=== PATIENT | female | born 1940 | race Caucasian/White ===

== ENCOUNTER → 2016-10-02 | Outpatient (CLI) | payer MEDICARE ==
--- NOTE | 2016-10-02 13:31 | WOMENS IMAGING REPORT ---
EXAM DESCRIPTION: BONE DENSITY HIP/SPINE COMPLETED DATE/TIME: 10/02/2016 10:40 am REASON FOR STUDY: OSTEOPROSIS M81.0 M81.8 OTHER OSTEOPOROSIS WITHOUT CURRENT PATHOLOGICAL FRACTU M8 1.0 AGE-RELATED OSTEOPOROSIS W/O CURRENT PATHOLOGICAL FRAC COMPARISON: August 2014 TECHNIQUE: Dual-Energy X-ray Absorptiometry (DEXA) of the AP Spine and Hip. LIMITATIONS: None. FINDINGS: LUMBAR SPINE: The bone mineral density (BMD) measured from L1-L4 in the AP projection correlates with a T-score of -0.5, which is normal as defined by the World Health Organization. -3.4% decrease as compared to the previous study HIP: The bone mineral density (BMD) measured in the left hip correlates with a T-score of -2.0, which is o steopenia as defined by the World Health Organization. -2.0 decrease as compared to the previous umer dy. IMPRESSION: 1. LUMBAR SPINE: Normal 2. HIP: Osteopenia COMMENT: The World Health Organization defines low BMD as follows: T-score: Normal: Greater than -1.0 Osteopenia: Between -1.0 and -2.5 Osteoporosis: Less than -2.5 without fractures Established osteoporosis: Less than -2.5 with fractures In general, you may wish to consider: Diagnosis Treatment Follow-up DEXA Normal BMD Prevention 2-3 years Osteopenia Prevention/Therapy 1-2 years Osteoporosis Therapy Yearly TECHNICAL DOCUMENTATION: JOB ID: [id number]- All Rights Reserved
== END ==
LOC: WI 09:39
PROVIDERS: ATTEND Student in an Organized Health Care Education/Training Program
DX: M81.8 Other osteoporosis without current pathological fracture (principal)
CPT/HCPCS: 77080

== ENCOUNTER → 2017-04-24 | Outpatient (CLI) | payer MEDICARE ==
--- NOTE | 2017-04-24 16:58 | RADIOLOGY REPORT (SQ) ---
EXAM DESCRIPTION: CHEST PA/LATERAL COMPLETED DATE/TIME: 04/24/2017 4:41 pm REASON FOR STUDY: MIXED SIMPLE AND MUCOPURULENT CHRONIC BRONCHITIS COMPARISON: 12/04/2012. EXAM PARAMETERS: NUMBER OF VIEWS: two views TECHNIQUE: Digital Frontal and Lateral radiographic views of the chest acquired. RADIATION DOSE: NA LIMITATIONS: none FINDINGS: LUNGS AND PLEURA: Mild chronic interstitial changes. No infiltrates, masses or pneumothor ax. No pleural effusion. MEDIASTINUM AND HILAR STRUCTURES: No masses or contour abnormalities. HEART AND VASCULAR STRUCTURES: Heart normal size. No evidence for failure. BONES: No acute findings. HARDWARE: None in the chest. OTHER: No other significant finding. IMPRESSION: NO ACUTE RADIOGRAPHIC FINDING IN THE CHEST. TECHNICAL DOCUMENTATION: JOB ID: [id number] [email or web address]- All Rights Reserved
== END ==
LOC: OD 16:20
PROVIDERS: ATTEND Student in an Organized Health Care Education/Training Program
DX: J41.8 Mixed simple and mucopurulent chronic bronchitis (principal)
CPT/HCPCS: 71046

== ENCOUNTER → 2017-05-01 | Outpatient (CLI) | payer MEDICARE ==
--- NOTE | 2017-05-01 16:49 | RADIOLOGY REPORT (SQ) ---
EXAM DESCRIPTION: CT LUNG CANCER SCREENING COMPLETED DATE/TIME: 05/01/2017 2:51 pm REASON FOR STUDY: PERSONAL HX OF TOBACCO USE Z12.2 ENCNTR SCREEN FOR MALIGNANT NEOPLASM OF RESPIRAT ORY OR R05 COUGH Z87.891 PERSONAL HISTORY OF NICOTINE DEPENDENCE Has the patient had a Chest CT scan within the past year? No Was the patient offered tobacco cessation counseling? No Was the patient engaged in shared decision making for this test? Yes Does the patient have signs or symptoms of Lung Cancer? No Is the patient a smoker? No How many packs per year? 40 How many years since quitting smoking? 10 Patients age: COMPARISON: None. TECHNIQUE: Low Dose CT scan performed of the chest without intravenous contrast for purposes of scre ening for lung cancer. Images reviewed with lung, soft tissue and bone windows. Reconstructed coron al and sagittal MPR images reviewed. All images stored on PACS. All CT scanners at this facility use dose modulation, iterative reconstruction, and/or weight based d osing when appropriate to reduce radiation dose to as low as reasonably achievable (ALARA). [facility]: Dose Right [facility]: CareDose [facility]: Dose Right [facility]: Teradose 4D [facility]: [employer] RADIATION DOSE: CT Rad equipment meets quality standard of care and radiation dose reduction techniq ues were employed. CTDIvol: 2.1 mGy. DLP: 76 mGy-cm. mGy. . 76.2 LIMITATIONS: None FINDINGS: LUNGS AND PLEURA: No masses or nodules. No pleural effusions or calcifications. No pne umothorax. Chronic bilateral subpleural interstitial changes. HILAR AND MEDIASTINAL STRUCTURES: No identified masses. No abnormal nodes. HEART AND VASCULAR STRUCTURES: No aortic aneurysm. No pericardial effusion. No cardiac devices. CORONARY ARTERY CALCIFICATIONS: Atherosclerotic coronary artery calcification. UPPER ABDOMEN, THYROID, BONES, OTHER SOFT TISSUES:Status post cholecystectomy. IMPRESSION: NO SIGNIFICANT FINDING IN THE LUNGS ON NON-CONTRASTED CHEST CT. NO OTHER CLINICALLY SIGNIFICANT/POTENTIALLY CLINICALLY SIGNIFICANT FINDINGS LUNGRADS: LUNGRADS: 1 NEGATIVE. NO NODULES, OR DEFINITELY BENIGN NODULES MODIFIER: NONE RECOMMENDATION: Continue annual screening with LDCT in 12 months. COMMENT: CRITERIA: No lung nodules. Nodules with specific calcifications: Complete, central, popcorn, concentric rings and fat containin g nodules. TECHNICAL DOCUMENTATION: JOB ID: [id number] Quality ID # [id number]: Final reports with documentation of one or more dose reduction techniques (e.g., Au tomated exposure control, adjustment of the mA and/or kV according to patient size, use of iterative reconstruction technique) 2010 [employer]
== END ==
LOC: RAD 14:20
PROVIDERS: ATTEND Student in an Organized Health Care Education/Training Program
DX: Z12.2 Encounter for screening for malignant neoplasm of respiratory organs (principal); Z87.891 Personal history of nicotine dependence; R06.2 Wheezing
CPT/HCPCS: G0297

== ENCOUNTER 2018-02-17 10:05 | Day surgery (SDC) | payer MEDICARE ==
[~2018-02-17 10:05] MED LIST: MIDAZOLAM 2 MG/2 ML INJ ONE
[2018-02-17] MEDS ORDERED: TETRACAINE HCL 0.5% OPH SOLN 4 ML ONE (10:09)
[2018-02-17] MEDS ORDERED: BALANCED SALT IRRIG SOLN COMB2 15 ML BOTTLE ONE (10:09)
[2018-02-17] MEDS ORDERED: POVIDONE-IODINE 5% OPH PREP SOLN 30 ML ONE (10:09)
[2018-02-17] MEDS ORDERED: FENTANYL CITRATE INJ/PF 100 MCG/2 ML AMPUL ONE (11:33)
[2018-02-17] MEDS ORDERED: MIDAZOLAM 2 MG/2 ML INJ ONE (11:57)
[2018-02-17] MEDS: THROMBIN (BOVINE) TOPICAL 5000 UNIT VIAL ONE ×2 (12:04→12:35)
[2018-02-17] MEDS: BUPIVACAINE HCL 0.75% INJ/PF (7.5 MG/1 ML) 10 ML SDV ONE ×2 (12:04→12:35)
[2018-02-17] MEDS: LIDOCAINE 2%/EPINEPHRINE INJ 20 ML VIAL ONE ×2 (12:04→12:35)
[2018-02-17] MEDS: TOBRAMYCIN SULFATE/DEXAMETH OPH OINTMENT 3.5 GM ONE ×3 (12:36→12:43)
--- NOTE | 2018-02-17 19:12 | [facility] OPERATIVE REPORT E ---
[facility] Operative Report NAME: SENDY GONSALEZ AGE: 77Y DATE OF SURGERY: 02/17/2018 ROOM: PREOPERATIVE DIAGNOSIS: Bilateral eyelid dermatochalasis residual field loss. POSTOPERATIVE DIAGNOSIS: Bilateral eyelid dermatochalasis residual field loss. PROCEDURE PERFORMED: Bilateral upper eyelid blepharoplasty. SURGEON: JAYDE WOO M.D. ANESTHESIA: Local with MAC. DETAIL OF PROCEDURE: The patient was brought to the operating room and under monitored anesthesia care, both eyes were sterilely prepped and draped in the usual manner. Septocaine drops were placed in both eyes. Attention was directed to the left upper lid where the upper lid crease was marked using a marking pen and 0.3 mm forceps were used to estimate the excess upper eyelid skin to be excised. This was marked in an elliptical fashion. Identical procedure was performed on the right upper lid. Local anesthesia was administered. This consisted of a total of 3 mL of 2% Xylocaine with epinephrine mixed with 0.75% Marcaine. This was equally administered to both upper lids and diffused with a Q-Tip. Attention was directed to the left upper lid where the elliptical piece of skin was removed. Hemostasis was obtained with bipolar cautery. The orbital septum was opened and prolapsed retino-septal fat was grasped with a hemostat, cut and cauterized. Thrombin was placed on the incision. Identical procedure was performed on the right upper lid. Wound closure was completed with 2 interrupted 6-0 silk sutures taking a deep bite of levator fascia in both upper lids and finished with a running 6-0 Nylon suture in both upper lids. There was full closure and good hemostasis at the end of the surgery. Maxitrol ointment was placed on both upper lid incisions. Patient tolerated the procedure well and was sent to recovery room in good condition. DICTATING PHYSICIAN: JAYDE WOO M.D. [id number] PHY#: [id number] ID: [id number] JOB#: [id number] ACCT: [id number] cc:JAYDE WOO M.D. >
--- NOTE | 2018-02-17 19:26 | [facility] DISCHARGE SUMMARY E ---
[facility] Discharge Summary NAME: SENDY GONSALEZ AGE: 77Y ADMITTED: 02/17/2018 DISCHARGED: 02/17/2018 ADMISSION DIAGNOSIS: Bilateral eyelid dermatochalasis residual field loss. DISCHARGE DIAGNOSIS: Bilateral eyelid dermatochalasis residual field loss. HOSPITAL COURSE: The patient is a 77-year-old lady who underwent uneventful bilateral blepharoplasty on 02/17/18. She will be discharged to home. DISCHARGE INSTRUCTIONS: She is instructed to resume preoperative medications, take Tylenol as needed for discomfort. To use a blepharoplasty ice pack 10 minutes out of every hour while awake. To keep the head of her bed elevated 30 degrees. To use TobraDex ointment twice a day and followup in my office on 02/26/18. DICTATING PHYSICIAN: JAYDE WOO M.D. [id number] PHY#: [id number] ID: [id number] JOB#: [id number] ACCT: [id number] cc:JAYDE WOO M.D. >
== END 2018-02-17 13:40 | disposition home or self-care (01) ==
LOC: SC 10:05
PROVIDERS: ATTEND Ophthalmology
DX: H02.831 Dermatochalasis of right upper eyelid (principal); H02.834 Dermatochalasis of left upper eyelid; H53.453 Other localized visual field defect, bilateral; I10 Essential (primary) hypertension; E78.00 Pure hypercholesterolemia, unspecified; E03.9 Hypothyroidism, unspecified; F17.210 Nicotine dependence, cigarettes, uncomplicated; J45.909 Unspecified asthma, uncomplicated; I49.9 Cardiac arrhythmia, unspecified; G47.33 Obstructive sleep apnea (adult) (pediatric); Z79.899 Other long term (current) drug therapy; Z79.51 Long term (current) use of inhaled steroids; Z85.3 Personal history of malignant neoplasm of breast
CPT/HCPCS: 15823; J2250; J3490 ×7; J3010; 103

== ENCOUNTER 2018-11-21 21:35 | Emergency (ER) | payer MEDICARE ==
[2018-11-21] MEDS ORDERED: MORPHINE SULFATE 10 MG/ML INJ IV ONE (22:26)
[2018-11-21] MEDS ORDERED: ONDANSETRON HCL INJ/PF 4 MG/2 ML SDV IV ONE (22:26)
--- NOTE | 2018-11-21 22:32 | ER Document Report ---
ED Fall - General Chief Complaint: Facial Injury Stated Complaint: FALL/FACIAL TRAUMA Time Seen by Provider: 11/21/18 22:18 Primary Care Provider: DAJUAN NORTON DDS [ACTIVE STAFF] - 11/23/18 Notes: Patient is a 78-year-old female who comes to the emergency department for chief complaint of fall injury. She states she fell in the parking lot, she landed on her right wrist and also struck her face on the pavement, she has abrasions to the forehead, side of the nose, and she did have a nosebleed. She was not knocked out. She reports nausea but she has not vomited. She is not on blood thinner. She has a bruise over her left lower leg as well. She denies any other injuries including back pain, chest pain, abdominal pain, focal numbness or weakness, or incontinence. Daughter is at bedside. Patient was brought by EMS, given 50 mcg of fentanyl. Patient's tetanus is up-to-date. TRAVEL OUTSIDE OF THE [place] IN LAST 30 DAYS: No - Related data Allergies/Adverse Reactions: PRANAV Inhibitors [Pranav Inhibitors] Allergy (Verified 02/17/18 11:08) dexamethasone [From Maxitrol] Allergy (Verified 02/17/18 11:08) neomycin [From Maxitrol] Allergy (Verified 02/17/18 11:08) polymyxin B [From Maxitrol] Allergy (Verified 02/17/18 11:08) TAPE Allergy (Uncoded 02/17/18 11:08) BLISTER Past Medical History - General Information source: Patient - Social History Smoking Status: Never Smoker Frequency of alcohol use: None Drug Abuse: None Lives with: Family Family History: Reviewed & Not Pertinent - Past Medical History Cardiac Medical History: Reports: Hx Hypertension - CONTROLLED Denies: Hx Heart Attack Pulmonary Medical History: Denies: Hx Asthma Neurological Medical History: Denies: Hx Cerebrovascular Accident, Hx Seizures GI Medical History: Denies: Hx Hepatitis, Hx Hiatal Hernia, Hx Ulcer Infectious Medical History: Denies: Hx Hepatitis Past Surgical History: Reports: Hx Hysterectomy, Hx Mastectomy - LUMPECTOMY, ONCOPLASTIC, NO RESTRICTIONS. Denies: Hx Open Heart Surgery, Hx Pacemaker - Immunizations Hx Diphtheria, Pertussis, Tetanus Vaccination: Yes Review of Systems - Review of Systems Constitutional: No symptoms reported EENT: No symptoms reported Cardiovascular: No symptoms reported Respiratory: No symptoms reported Gastrointestinal: See HPI Genitourinary: No symptoms reported Female Genitourinary: No symptoms reported Musculoskeletal: See HPI Skin: See HPI Hematologic/Lymphatic: No symptoms reported Neurological/Psychological: No symptoms reported Physical Exam - Vital signs Vitals: Temp Pulse Resp BP Pulse Ox 98.4 F 81 18 199/106 H 97 11/21/18 21:55 11/21/18 21:55 11/21/18 21:55 11/21/18 21:55 11/21/18 21:55 - Notes Notes: GENERAL: Alert, interacts well. HEAD: Normocephalic. Abrasion over the left eyebrow and along the upper lateral aspect of the nose, no significant wounds, no trauma noted otherwise. EYES: Pupils equal, round, and reactive to light. Extraocular movements intact. ENT: Oral mucosa moist, tongue midline. Oropharynx unremarkable. Airway patent. Small amount of dried epistaxis. No septal hematoma. No current bleeding, lexy ining nasal exam is unremarkable. TM's intact. NECK: Full range of motion. Supple. Trachea midline. LUNGS: Clear to auscultation bilaterally, no wheezes, rales, or rhonchi. No respiratory distress. HEART: Regular rate and rhythm. No murmur ABDOMEN: Soft, non-tender. Non-distended. Bowel sounds present in all 4 quadrants. GENITOURINARY: Deferred EXTREMITIES: Reports tenderness around the right wrist but no swelling, tenderness, snuffbox tenderness, range of motion deficit, or other abnormalities noted. Tenderness with a contusion over the left proximal anterior tibia. Otherwise all extremities are completely unremarkable with normal distal neurovascular exams. BACK: no cervical, thoracic, lumbar midline tenderness. No saddle anesthesia, normal distal neurovascular exam. Moves all extremities in full range of motion. NEUROLOGICAL: Alert and oriented x3. Normal speech. Cranial nerves II through XII grossly intact. PSYCH: Normal affect, normal mood. SKIN: Warm, dry, normal turgor. No rashes or lesions noted. Course - Re-evaluation Re-evalutation: Patient with facial abrasions but no wounds requiring repair. These were cleaned and dressed with bacitracin. Patient had epistaxis initially but her evaluation is reassuring, she has clear nasal passages now, no septal hematoma. CAT scan imaging showing fractures of the nasal bones and of the anterior aspect of the septum bone. I rechecked her and she has absolutely no septal hematoma. No septal hematoma on CAT scan imaging either. Remaining imaging unremarkable. On reevaluation patient continues to be well-appearing. She did require medications for nausea but then this dissipated. She has not vomited. No neurological deficits. I discussed work-up in detail with patient and family at bedside. Patient will be discharged home, follow-up with oral maxillofacial surgery, she was provided with pain medication and precautions, discussed return precautions in detail. They state understanding and agreement. - Vital Signs Vital signs: Temp Pulse Resp BP Pulse Ox 98.2 F 78 16 176/86 H 96 11/22/18 00:56 11/22/18 00:56 11/22/18 00:56 11/22/18 00:56 11/22/18 00:56 Discharge - Discharge Clinical Impression: Right wrist pain, Left leg pain Fall Qualifiers: Encounter type: initial encounter Qualified Code(s): W19.XXXA - Unspecified fall, initial encounter Nasal bone fracture Qualifiers: Encounter type: initial encounter Fracture type: closed Qualified Code(s): S02.2XXA - Fracture of nasal bones, initial encounter for closed fracture Facial abrasion Qualifiers: Encounter type: initial encounter Qualified Code(s): S00.81XA - Abrasion of other part of head, initial encounter Condition: Stable Disposition: HOME, SELF-CARE Additional Instructions: You have fractures of the nasal bones and part of the nasal bony septum. Follow-up with the facial surgeon, call Friday for your appointment. See nasal bone fracture instructions listed below. There is no bleeding on the brain, please follow head injury precautions listed below. Keep facial abrasions clean, clean with soap and water, dressed with topical antibiotic. Take pain medication if needed, take nausea medication if needed, take the stool softener if you do take the pain medication to avoid constipation. Return for any concerning symptoms. Fracture of the Nose You have a fractured nose. The examination shows no evidence that the nose needs to be "set" or operated on. However, the physician must recheck the nose once the swelling has decreased. The final decision about straightening of the bones or surgery can be made once the swelling resolves. This usually takes three to five days. Rest in a reclining chair. Cold pack the nose for the next 24 to 36 hours. Do not blow the nose. This may increase the swelling or cause further bleeding. If you have painful swelling inside the nose or exquisite tenderness when the tip of the nose is touched, you should call the doctor at once or return for re-evaluation. You should also contact the doctor if you develop fever, purulent nasal drainage, increasing pain in the face, or problems with vision. Head Injury Precautions At this point, there is no evidence that your head injury is serious. Observation is necessary, however. Take only clear liquids for the first few hours, unless told otherwise by the doctor. If no pain medication was prescribed, you may take acetaminophen according to the directions on the bottle. Do not take any medication that may alter your level of alertness (unless you've discussed it with the doctor first). Limit activity for the first 24 hours. During the first 24 hours, check to see approximately every two to three hours that the patient is easily arousable, responds normally, and can perform common tasks such as walking without difficulty. Contact your doctor or go to the hospital if any of the following things occur: Persistent vomiting, difficulty in arousing the patient, worsening or continued headache, or failure to improve as expected. Head injuries can cause symptoms that persist for a few days or even a few weeks. Prescriptions: Docusate Sodium [Colace 100 mg Capsule] 100 mg PO ASDIR PRN #30 capsule PRN Reason: Hydrocodone/Acetaminophen [[place] 5-325 mg Tablet] 1 - 2 tab PO ASDIR #15 tablet Ondansetron [Zofran Odt 4 mg Tablet] 1 - 2 tab PO Q4H PRN #15 tab.rapdis PRN Reason: For Nausea/Vomiting Referrals: DAJUAN NORTON DDS [ACTIVE STAFF] - 11/23/18
--- NOTE | 2018-11-21 23:18 | RADIOLOGY REPORT (SQ) ---
EXAM DESCRIPTION: CT HEAD WITHOUT IV CONTRAST COMPLETED DATE/TME: 11/21/2018 22:27 CLINICAL HISTORY: fall, injury COMPARISON: None available TECHNIQUE: Axial CT of the head obtained from the skull apex to the skull base without contrast. FINDINGS: No acute intracranial hemorrhage identified. No mass, mass effect, shift of the midline, abnormal extra-axial fluid collection or CT evidence of acute ischemic change identified. The ventricular system and sulcal spaces are mildly enlarged compatible with mild cerebral atrophy. Scattered areas of hypodensity throughout the supratentorial white matter are nonspecific and may be related to chronic small vessel ischemic change. The visualized paranasal sinuses and the mastoids are clear. Bilateral minimally displaced nasal bone fractures. Contusion in the left frontal scalp subcutaneous soft tissues. No skull fracture identified. Visualized orbits and globes are unremarkable. Atherosclerotic calcification of the intracranial internal carotid arteries. DLP: 855.01 mGy-cm IMPRESSION: 1. No acute intracranial abnormality by CT criteria. 2. Bilateral minimally displaced nasal bone fractures. Please see dedicated facial bone CT for further details. This exam was performed according to our departmental dose-optimization program, which includes automated exposure control, adjustment of the mA and/or kV according to patient size and/or use of iterative reconstruction technique.
--- NOTE | 2018-11-21 23:27 | RADIOLOGY REPORT (SQ) ---
EXAM DESCRIPTION: [facility]: CT MAXILLOFACIAL WITHOUT IV CONTRAST CLINICAL HISTORY: 78 years Female; fall, injury TECHNIQUE: High resolution axial CT of the face without contrast, with sagittal and coronal reformatted images. All CT scans at this facility use dose modulation, iterative reconstruction, and/or weight based dosing when appropriate to reduce radiation dose to as low as reasonably achievable. COMPARISON: None. FINDINGS: There are multiple acute minimally displaced fractures of the nasal bones bilaterally. A minimally displaced fracture also extends through the anterior superior portion of the bony nasal septum. There is minimal septal hemorrhage. Small amount of hemorrhage and air is noted anterior to the nasal bones. No hyperdense foreign bodies. Mandible is intact. No additional facial fractures. Both globes are aphakic. There is mild left supraorbital/frontal scalp hemorrhage/edema. No significant focal hematoma. Paranasal sinuses and mastoids are clear. No retro-orbital hematoma. IMPRESSION: 1. Acute minimally displaced fractures of the nasal bones and anterior superior portion of the bony nasal septum. There is associated hemorrhage, but no significant septal hematoma. 2. No additional facial fractures.
--- NOTE | 2018-11-21 23:37 | RADIOLOGY REPORT (SQ) ---
EXAM DESCRIPTION: XR TIBIA FIBULA 2 VIEWS COMPLETED DATE/TME: 11/21/2018 22:27 CLINICAL HISTORY: 78 years, Female, fall, injury COMPARISON: None. NUMBER OF VIEWS: 4 TECHNIQUE: 4 views of the left tibia fibula LIMITATIONS: None. FINDINGS: Status post total left knee arthroplasty. Osteopenia. Negative for acute fracture or dislocation. No joint effusion IMPRESSION: No acute osseous abnormality copyright 2010 [employer]- All Rights Reserved
--- NOTE | 2018-11-21 23:38 | RADIOLOGY REPORT (SQ) ---
EXAM DESCRIPTION: XR WRIST 3 OR MORE VIEWS BILATERAL COMPLETED DATE/TME: 11/21/2018 22:27 CLINICAL HISTORY: 78 years, Female, fall, injury COMPARISON: None. NUMBER OF VIEWS: 3 TECHNIQUE: 3 view right wrist LIMITATIONS: None. FINDINGS: Osteopenia. There is an old avulsed fracture of the ulnar styloid as well as an old healed fracture of the distal radial metaphysis. No evidence for acute fracture or dislocation. Soft tissues are unremarkable. Degenerative changes of the hand and wrist IMPRESSION: Old fracture deformities with degenerative change. copyright 2010 [employer]- All Rights Reserved
[2018-11-21] MEDS ORDERED: METOCLOPRAMIDE HCL INJ/PF 10 MG/2 ML SDV IV ONE (23:47)
[2018-11-22] MEDS ORDERED: HYDROCODONE/ACETAMINOPHEN 5-325 MG (6 TAB/ER DISP) PO PRN (00:47)
[2018-11-22] MEDS ORDERED: ONDANSETRON ODT 4 MG TAB (6 TAB/ER DISP) PO PRN (00:47)
[2018-11-22 01:14] VITALS: BP 176/86
== END 2018-11-22 00:56 | disposition home or self-care (01) ==
LOC: ER 21:35
DX: S02.2XXA Fracture of nasal bones, initial encounter for closed fracture (principal); S00.81XA Abrasion of other part of head, initial encounter; M25.531 Pain in right wrist; M79.605 Pain in left leg; R11.0 Nausea; W18.30XA Fall on same level, unspecified, initial encounter; Y92.481 Parking lot as the place of occurrence of the external cause; I10 Essential (primary) hypertension; Z90.710 Acquired absence of both cervix and uterus
CPT/HCPCS: 73590; 73110; 70450; 70486; J2765; J2270; J2405; A9270 ×2; 96374; 96375; 99284